=== PATIENT | male | born 1980 | race African-American/Black ===

== ENCOUNTER 2021-09-04 14:08 | Emergency (ER) | payer BC ==
[2021-09-04 14:27] VITALS: BP 127/72; PULSE 88; BMI 24.4
[2021-09-04] MEDS ORDERED: IBUPROFEN 600 MG TABLET (FP) PO ONE ×2 (14:46→15:05)
== END 2021-09-04 15:43 | disposition home or self-care (01) ==
LOC: JER 14:08
DX: M25.531 Pain in right wrist (principal); W11.XXXA Fall on and from ladder, initial encounter
CPT/HCPCS: 73110-TC-RT-FY; 73130-TC-RT-FY; 99283-25